=== PATIENT | male | born 1985 | race Two or more races ===

== ENCOUNTER 2017-09-18 08:34 | Emergency (ER) | payer BC ==
[~2017-09-18] VITALS: Ht 175.3 cm; Wt 68.0 kg
[2017-09-18 08:45] VITALS: BP 143/103; Ht 175.3 cm; Wt 68.0 kg
== END 2017-09-18 09:40 | disposition home or self-care (01) ==
LOC: ED 08:34
DX: Z11.3 Encounter for screening for infections with a predominantly sexual mode of transmission (principal)
CPT/HCPCS: 87491; 87591; J0696